=== PATIENT | male | born 1960 | race Caucasian/White ===

== ENCOUNTER 2017-03-24 15:03 | Emergency (ER) | payer OTHER ==
[~2017-03-24] VITALS: Ht 175.3 cm; Wt 86.2 kg
[2017-03-24] MEDS ORDERED: BACTRIM DS TAB1 EAC1 PO (15:54)
[2017-03-24 18:40] VITALS: BP 128/68
== END 2017-03-24 18:42 ==
LOC: ER 15:03
DX: L03.311 Cellulitis of abdominal wall (principal)